=== PATIENT | male | born 1955 | race Two or more races ===

== ENCOUNTER 2016-12-13 05:39 | Emergency (ER) | payer OTHER ==
[~2016-12-13] VITALS: Ht 170.2 cm; Wt 102.1 kg
[~2016-12-13 05:39] MED LIST: SYNTHROID75 MCG PO
[2016-12-13 06:00] VITALS: BP 138/88
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
[2016-12-13 06:40] LABS: BASOPHILS % (AUTO) 0.4 % (0.0-2.0); EOSINOPHILS % (AUTO) 2.4 % (0.0-3.0); LYMPHOCYTES % (AUTO) 32.4 % (20.0-45.0); MEAN CORPUSCULAR HEMOGLOBIN 29.8 PG (27.0-31.0); MEAN CORPUSCULAR HGB CONC 34.6 G/DL (32.0-36.0); MEAN CORPUSCULAR VOLUME 86 FL (80-99); MEAN PLATELET VOLUME 8.5 FL (6.5-10.1); MONOCYTES % (AUTO) 10.7 % (1.0-10.0); NEUTROPHILS % (AUTO) 54.2 % (45.0-75.0); PLATELET COUNT 231 K/UL (150-450); RED BLOOD COUNT 5.25 M/UL (4.70-6.10); RED CELL DISTRIBUTION WIDTH 11.6 % (11.6-14.8)
[2016-12-13 06:56] LABS: ANION GAP 10 (5-15); CALCIUM 9.7 mg/dL (8.6-10.2); CARBON DIOXIDE 28 mEQ/L (20-30); CHLORIDE 103 mEQ/L (98-107); GLOMERULAR FILTRATION RATE > 60 mL/min (>60); HEMOLYSIS 7; POTASSIUM 4.5 mEQ/L (3.4-4.9); SODIUM 141 mEQ/L (135-145)
[2016-12-13 07:00] LABS: TROPONIN I < 0.30 ng/mL (<=0.30)
[2016-12-13 08:06] VITALS: BP 131/75
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
[2016-12-13] MEDS ORDERED: LIDODERM700 M1 TOPIC (09:28)
[2016-12-13 09:46] VITALS: BP_SYST 131; BP_SYST 134; BP_DIAS 75
--- NOTE | 2016-12-13 15:31 | Cardiology Report ---
APPROVED REPORT EKG Measurement Heart [id number] Normal sinus rhythm Incomplete right bundle branch block Borderline ECG
== END 2016-12-13 09:54 | disposition home or self-care (01) ==
LOC: EMR 06:33
DX: R00.2 Palpitations (principal); R07.9 Chest pain, unspecified; M47.814 Spondylosis without myelopathy or radiculopathy, thoracic region; N62 Hypertrophy of breast; J98.11 Atelectasis
CPT/HCPCS: 36415; 71275; 80048; 84484; 85025; 93005; 99284; Q9967

== ENCOUNTER 2018-06-18 16:00 | Emergency (ER) | payer OTHER ==
[~2018-06-18] VITALS: Ht 177.8 cm; Wt 99.8 kg
[~2018-06-18 16:00] MED LIST changes: +LIDODERM700 M1 TOPIC
[2018-06-18 16:15] VITALS: BP 143/97
--- NOTE | 2018-06-18 16:23 | Emergency Room Report ---
History of Present Illness General Chief Complaint: Headache Source: Patient Present Illness HPI Patient presents with initial complaint of headache Reports the pain to the right temporal area also occipital region Reports that the headache came on this morning If progressed and patient also felt midsternal chest pain and heaviness Patient has sleep apnea however felt that his breathing was worsened Denies any pleurisy Denies any vomiting or diarrhea denies any fevers or chills Patient does report that he has had headaches similar to this off-and-on over the past several months however felt that this episode was worse Denies any focal weakness denies any recent travel Allergies: Coded Allergies: No Known Allergies (Unverified , 08/06/12) Patient History Past Medical History: see triage record Pertinent Family History: none Reviewed Nursing Documentation: PMH: Agreed; PSxH: Agreed Review of Systems All Other Systems: negative except mentioned in HPI Physical Exam Vital Signs Date Time Temp Pulse Resp B/P (MAP) Pulse Ox O2 Delivery O2 Flow Rate FiO2 06/18/18 16:03 98.0 60 18 125/77 98 Room Air 98.1 Sp02 EP Interpretation: reviewed, normal General Appearance: well appearing, no apparent distress Head: normocephalic, atraumatic Eyes: bilateral eye PERRL, bilateral eye EOMI ENT: hearing grossly normal, normal pharynx, TMs + canals normal, uvula midline Neck: full range of motion, supple, no meningismus, no bony tend Respiratory: lungs clear, normal breath sounds, no rhonchi, no respiratory distress, no retraction, no accessory muscle use Cardiovascular #1: normal peripheral pulses, regular rate, rhythm, no edema, no gallop, no JVD, no murmur Gastrointestinal: normal bowel sounds, non tender, soft, no mass, no organomegaly, non-distended, no guarding, no hernia, no pulsatile mass, no rebound Genitourinary: no CVA tenderness Musculoskeletal: normal inspection Neurologic: oriented x3, responsive, 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 as tested, motor strength/ tone normal, sensory intact Psychiatric: mood/affect normal Skin: normal color, no rash, warm/dry, palpation normal Lymphatic: normal inspection, no adenopathy Medical Decision Making Diagnostic Impression: Primary Impression: Headache ER Course Patient is a fairly complex patient with multiple differential to consideration including but not limited to cardiac cardiopulmonary and vascular emergencies Given the patient's headache intracranial pathology was also entertained Patient does not have any meningismal type findings EKG along with enzymes were negative Patient's imaging studies were also benign patient has done well throughout his stay I feel that there are likely multiple aspects influencing patient's discomfort including but not limited to sleep apnea, migraine versus cluster type headaches Patient was recommended to follow up closely with neurology and return with any changes or concerns Labs Test 06/18/18 17:00 White Blood Count 6.8 K/UL (4.8-10.8) Red Blood Count 5.45 M/UL (4.70-6.10) Hemoglobin 15.5 G/DL (14.2-18.0) Hematocrit 46.9 % (42.0-52.0) Mean Corpuscular Volume 86 FL (80-99) Mean Corpuscular Hemoglobin 28.4 PG (27.0-31.0) Mean Corpuscular Hemoglobin Concent 33.0 G/DL (32.0-36.0) Red Cell Distribution Width 11.9 % (11.6-14.8) Platelet Count 217 K/UL (150-450) Mean Platelet Volume 7.5 FL (6.5-10.1) Neutrophils (%) (Auto) 73.8 % (45.0-75.0) Lymphocytes (%) (Auto) 17.8 % (20.0-45.0) Monocytes (%) (Auto) 6.7 % (1.0-10.0) Eosinophils (%) (Auto) 1.1 % (0.0-3.0) Basophils (%) (Auto) 0.6 % (0.0-2.0) Sodium Level 140 MMOL/L (136-145) Potassium Level 4.7 MMOL/L (3.5-5.1) Chloride Level 103 MMOL/L (98-107) Carbon Dioxide Level 29 MMOL/L (21-32) Anion Gap 8 mmol/L (5-15) Blood Urea Nitrogen 18 mg/dL (7-18) Creatinine 0.9 MG/DL (0.55-1.30) Estimat Glomerular Filtration Rate > 60 mL/min (>60) Glucose Level 101 MG/DL (74-106) Calcium Level 9.5 MG/DL (8.5-10.1) Total Bilirubin 0.5 MG/DL (0.2-1.0) Aspartate Amino Transf (AST/SGOT) 23 U/L (15-37) Alanine Aminotransferase (ALT/SGPT) 35 U/L (12-78) Alkaline Phosphatase 66 U/L (46-116) Total Creatine Kinase 117 U/L (26-308) Creatine Kinase MB 1.3 NG/ML (0.0-3.6) Creatine Kinase MB Relative Index 1.1 Troponin I 0.000 ng/mL (0.000-0.056) Pro-B-Type Natriuretic Peptide 23 pg/mL (0-125) Total Protein 7.8 G/DL (6.4-8.2) Albumin 3.9 G/DL (3.4-5.0) Globulin 3.9 g/dL Albumin/Globulin Ratio 1.0 (1.0-2.7) Lipase 133 U/L (73-393) Urine Opiates Screen Negative (NEGATIVE) Urine Barbiturates Screen Negative (NEGATIVE) Phencyclidine (PCP) Screen Negative (NEGATIVE) Urine Amphetamines Screen Negative (NEGATIVE) Urine Benzodiazepines Screen Negative (NEGATIVE) Urine Cocaine Screen Negative (NEGATIVE) Urine Marijuana (THC) Screen Negative (NEGATIVE) EKG Diagnostic Results Rate: normal Rhythm: NSR ST Segments: no acute changes Rhythm Strip Diag. Results EP Interpretation: yes Rate: 77 Rhythm: NSR, no PVC's, no ectopy Chest X-Ray Diagnostic Results Chest X-Ray Diagnostic Results : Chest X-Ray Ordered: Yes # of Views/Limited/Complete: 1 View Indication: Chest Pain EP Interpretation: Yes Interpretation: no consolidation, no effusion, no pneumothorax Impression: No acute disease Electronically Signed by: Savannah Christian DO CT/MRI/US Diagnostic Results CT/MRI/US Diagnostic Results : Impression CT head no acute disease Last Vital Signs Date Time Temp Pulse Resp B/P (MAP) Pulse Ox O2 Delivery O2 Flow Rate FiO2 06/18/18 16:15 98.7 58 15 143/97 99 Room Air 98.7 Status: improved Disposition: HOME, SELF-CARE Condition: Improved Scripts Acetaminophen With Codeine (T#3) (TYLENOL #3 TAB*) Y Tab 1 TAB ORAL Q12HR PRN for For Pain, #7 TAB Prov: Savannah Christian DO 06/18/18 Ibuprofen* (MOTRIN*) 600 Mg Tablet 600 MG ORAL Q8H PRN for For Pain, #20 TAB 0 Refills Prov: Savannah Christian DO 06/18/18 Additional Instructions: Patient is provided with the discharge instructions notified to follow up with primary doctor in the next 2-3 days otherwise return to the er with any worsening symptoms. Please note that this report is being documented using DRAGON technology. This can lead to erroneous entry secondary to incorrect interpretation by the dictating instrument. Savannah Christian DO Jun 18, 2018 16:23
[2018-06-18] MEDS ORDERED: Ketorolac 30mg Inj IV ONE (16:30)
--- NOTE | 2018-06-18 17:02 | Diagnostic Imaging Report ---
Indications: Headache Technique: Spiral acquisitions obtained through the brain. Angled axial and coronal 5 x 5 mm slices were reconstructed. Total dose length product 1411.02 mGycm. CTDI vol(s) 70.38 mGy. Dose reduction achieved using automated exposure control Comparison: None. Findings: Ventricles and extra axial CSF spaces are within normal limits for age. No acute intracranial hemorrhage or edema, mass effect nor midline shift. Normal downing-white differentiation. Visualized orbits and sinuses are clear. The mastoids are clear. The calvarium is intact Impression: Negative The CT scanner at [facility] is accredited by the [employer] and the scans are performed using protocols designed to limit radiation exposure to as low as reasonably achievable to attain images of sufficient resolution adequate for diagnostic evaluation.
--- NOTE | 2018-06-18 17:03 | Diagnostic Imaging Report ---
Indication: Chest pain Technique: One view of the chest Comparison: 08/06/2012 Findings: Lungs and pleural spaces are clear. Heart size is normal . No significant change Impression: No acute process
[2018-06-18 17:13] LABS: BASOPHILS % (AUTO) 0.6 % (0.0-2.0); EOSINOPHILS % (AUTO) 1.1 % (0.0-3.0); HEMATOCRIT 46.9 % (42.0-52.0); HEMOGLOBIN 15.5 G/DL (14.2-18.0); LYMPHOCYTES % (AUTO) 17.8 % (20.0-45.0); MEAN CORPUSCULAR VOLUME 86 FL (80-99); MONOCYTES % (AUTO) 6.7 % (1.0-10.0); NEUTROPHILS % (AUTO) 73.8 % (45.0-75.0); PLATELET COUNT 217 K/UL (150-450); RED BLOOD COUNT 5.45 M/UL (4.70-6.10); RED CELL DISTRIBUTION WIDTH 11.9 % (11.6-14.8); WHITE BLOOD COUNT 6.8 K/UL (4.8-10.8)
[2018-06-18 17:25] LABS: ANION GAP 8 mmol/L (5-15); BLOOD UREA NITROGEN 18 mg/dL (7-18); CALCIUM 9.5 MG/DL (8.5-10.1); CARBON DIOXIDE 29 MMOL/L (21-32); CHLORIDE 103 MMOL/L (98-107); CREATININE 0.9 MG/DL (0.55-1.30); POTASSIUM 4.7 MMOL/L (3.5-5.1); SODIUM 140 MMOL/L (136-145)
[2018-06-18 17:39] LABS: ALANINE AMINOTRANSFERASE 35 U/L (12-78); ALBUMIN 3.9 G/DL (3.4-5.0); ALKALINE PHOSPHATASE 66 U/L (46-116); ASPARTATE AMINO TRANSFERASE 23 U/L (15-37); BILIRUBIN,TOTAL 0.5 MG/DL (0.2-1.0); CKMB 1.3 NG/ML (0.0-3.6); CREATINE KINASE 117 U/L (26-308)
[2018-06-18] MEDS ORDERED: ACETAMINOPHEN-1 EAC1 ORAL (18:22)
[2018-06-18] MEDS ORDERED: IBUPROFEN600 MG ORAL (18:22)
[2018-06-18 18:34] VITALS: BP_SYST 143; BP_DIAS 87; BP_DIAS 97
== END 2018-06-18 18:34 | disposition home or self-care (01) ==
LOC: EMR 16:20
DX: R51 Headache (principal)
CPT/HCPCS: 36415; 70450; 71045; 80053; 80307; 82550; 82553; 83690; 83880; 84484; 85025; 93005; 96361; 96374; 99284; J1885

== ENCOUNTER 2018-08-20 23:51 | Emergency (ER) | payer OTHER ==
[~2018-08-20] VITALS: Ht 170.2 cm; Wt 102.1 kg
[~2018-08-20 23:51] MED LIST changes: +ACETAMINOPHEN-1 EAC1 ORAL; +IBUPROFEN600 MG ORAL
[2018-08-21] MEDS ORDERED: HYDROCHLOROTH12.5 M2 ORAL (00:10)
[2018-08-21] MEDS ORDERED: OMEPRAZOLE10 M1 ORAL (00:10)
[2018-08-21 00:16] VITALS: BP 153/68
[2018-08-21] MEDS ORDERED: Isovue-300 100ml vial INJ PRN (01:00)
[2018-08-21] MEDS ORDERED: Ketorolac 60mg Inj IM ONE (01:00)
[2018-08-21] MEDS ORDERED: Dexamethasone 4mg/ml vial IM ONE (01:00)
[2018-08-21 01:41] VITALS: BP 130/90
[2018-08-21 02:04] LABS: APPEARANCE,URINE CLEAR; BILIRUBIN, URINE NEGATIVE (NEGATIVE); COLOR,URINE PALE YELLOW; GLUCOSE, URINE (UA) NEGATIVE (NEGATIVE); KETONES,URINE NEGATIVE (NEGATIVE); LEUKOCYTE ESTERASE ,URINE NEGATIVE (NEGATIVE); NITRITE,URINE NEGATIVE (NEGATIVE); PH,URINE 7 (4.5-8.0); PROTEIN,URINE NEGATIVE (NEGATIVE); UROBILINOGEN,URINE NORMAL MG/DL (0.0-1.0)
[2018-08-21] MEDS ORDERED: MELOXICAM7.5 MG PO (02:07)
--- NOTE | 2018-08-21 02:21 | Emergency Room Report ---
History of Present Illness General Chief Complaint: General Complaint Source: Patient Present Illness HPI Patient is a 63-year-old male presented after increased lower back pain. Patient reportedly had recent visits to his primary care physician. The patient reports having increased malaise as well as the right-sided lateral numbness. He reports having increased pain with movements. Patient had been seen by his physician the patient denies any fever. He denies any hematuria. He reports urinating. He reports increased pain with standing and seated position Allergies: Coded Allergies: No Known Allergies (Unverified , 08/06/12) Patient History Past Medical History: see triage record Reviewed Nursing Documentation: PMH: Agreed; PSxH: Agreed Nursing Documentation-PMH Past Medical History: No History, Except For Hx Hypertension: Yes - SLEEP APNEA Review of Systems All Other Systems: negative except mentioned in HPI Physical Exam Vital Signs Date Time Temp Pulse Resp B/P (MAP) Pulse Ox O2 Delivery O2 Flow Rate FiO2 08/21/18 00:07 98.2 70 16 143/93 97 Room Air 98.2 General Appearance: well appearing, no apparent distress, alert, GCS 15, obese Head: normocephalic, atraumatic ENT: hearing grossly normal, normal voice Neck: full range of motion, supple Respiratory: no respiratory distress, speaking full sentences Gastrointestinal: normal inspection Musculoskeletal: normal range of motion, decreased range of mation, other - antalgic gait Neurologic: 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 Differential diagnosis included but was not limited to herniated disc, cauda equina syndrome, abdominal aortic aneurysm, perforated ulcer, spinal epidural abscess, spinal stenosis, lumbar fracture, metastatic lesion, pyelonephritis. CT imaging of the lumbar spine was ordered due to patient's age and radicular symptoms.The CT of the lumbar spine read by radiology showed degenerative changes without evident fracture. The patient was noted to have urinalysis showed no evidence of infection.The patient was advised follow-up with primary care physician and physical therapy.The patient was advised of several exercises to perform to improve function of his back.The patient is given prescription for meloxicam. Return precautions were given. Labs Test 08/21/18 01:00 Urine Color Pale yellow Urine Appearance Clear Urine pH 7 (4.5-8.0) Urine Specific [place] 1.010 (1.005-1.035) Urine Protein Negative (NEGATIVE) Urine Glucose (UA) Negative (NEGATIVE) Urine Ketones Negative (NEGATIVE) Urine Blood Negative (NEGATIVE) Urine Nitrite Negative (NEGATIVE) Urine Bilirubin Negative (NEGATIVE) Urine Urobilinogen Normal MG/DL (0.0-1.0) Urine Leukocyte Esterase Negative (NEGATIVE) Last Vital Signs Date Time Temp Pulse Resp B/P (MAP) Pulse Ox O2 Delivery O2 Flow Rate FiO2 08/21/18 01:41 98.0 80 16 130/90 99 Room Air Status: improved Disposition: HOME, SELF-CARE Condition: Stable Scripts Meloxicam* (MELOXICAM*) 7.5 Mg Tablet 7.5 MG PO DAILY, #30 TAB Prov: Nabil Morgan MD 08/21/18 Referrals: [facility]ERR[facility] (PCP) Patient Instructions: Sciatica, [id number] Additional Instructions: Follow up with your physician for spine referral and physical therapy. Return if fever or loss of bowel or bladder function. Nabil Morgan MD Aug 21, 2018 02:21
--- NOTE | 2018-08-21 09:51 | Diagnostic Imaging Report ---
Indication: Back pain Technique: Continuous helical transaxial imaging of the lumbar spine was obtained from the lung bases to the pubic symphysis. No IV contrast was administered. Coronal 2-D reformats were also obtained. Study obtained in a Siemens sensation [address] Total Dose length Product (DLP): 922.[address] Dose Index Volume (CTDIvol): 24.23 mGy Comparison: None Findings: There is no evidence of an acute fracture or malalignment. Height and configuration of the vertebral bodies and intervertebral discs are within normal limits. Minimal endplate osteophytes and mild hypertrophy of the facets noted. There is no soft tissue swelling. Aorta is mildly calcified consistent with atherosclerotic disease. Impression: No evidence of acute injury involving the lumbar spine. Mild degenerative changes noted. The CT scanner at [facility] is accredited by the [employer] and the scans are performed using dose optimization techniques as appropriate to a performed exam including Automatic Exposure control.
== END 2018-08-21 02:48 | disposition home or self-care (01) ==
LOC: EMR 08-21 00:22
DX: M54.41 Lumbago with sciatica, right side (principal); I10 Essential (primary) hypertension
CPT/HCPCS: 72131; 81003; 96372; 99284; J1100

== ENCOUNTER 2018-12-01 23:56 | Emergency (ER) | payer OTHER ==
[~2018-12-01] VITALS: Ht 170.2 cm; Wt 108.9 kg
[~2018-12-01 23:56] MED LIST changes: +HYDROCHLOROTH12.5 M2 ORAL; +MELOXICAM7.5 MG PO; +OMEPRAZOLE10 M1 ORAL
[2018-12-02 01:00] VITALS: BP 131/68
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
[2018-12-02] MEDS ORDERED: IBUPROFEN600 MG ORAL (02:14)
[2018-12-02] MEDS ORDERED: ROBAXIN-750750 MG PO (02:14)
[2018-12-02 02:45] VITALS: BP 128/68
--- NOTE | 2018-12-02 02:45 | NUR ---
ER Nurse Note: Pt seen, treated, medically treated by KAYLYN. Discharge instructions and prescriptions given with repeat verbalization by pt. Instructed pt to follow up with primary care physcian within one week. Pt a&ox4, VSS, no signs of distress. ID band removed. Pt left with all belongings with steady gait via own transportation.
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
--- NOTE | 2018-12-02 10:56 | Diagnostic Imaging Report ---
Indication: Knee Pain 3 views of the left knee were obtained. Findings: There is narrowing of the joint space and osteophyte formation. There is a suspected small fracture at the inferior aspect of the patella. Soft tissue swelling is also present. Correlate clinically. IMPRESSION: Tiny acute fracture at the inferior pole of the patella. Associated soft tissue swelling. Osteoarthritis
== END 2018-12-02 02:45 | disposition home or self-care (01) ==
LOC: EMR 12-02 00:23
DX: S09.90XA Unspecified injury of head, initial encounter (principal); S82.092A Other fracture of left patella, initial encounter for closed fracture; Y04.2XXA Assault by strike against or bumped into by another person, initial encounter; Y92.89 Other specified places as the place of occurrence of the external cause; G47.30 Sleep apnea, unspecified; I10 Essential (primary) hypertension; M17.12 Unilateral primary osteoarthritis, left knee; E03.9 Hypothyroidism, unspecified; R51 Headache; M47.812 Spondylosis without myelopathy or radiculopathy, cervical region
CPT/HCPCS: 70450; 72125; 99284